=== PATIENT | male | born 1995 | race Caucasian/White ===

== ENCOUNTER 2024-02-28 03:55 | Emergency (ER) | payer SELFPAY ==
[~2024-02-28] VITALS: Ht 167.6 cm; Wt 90.0 kg
[2024-02-28 04:11] VITALS: O2SAT 97
[2024-02-28] MEDS: SODIUM CHLORIDE 0.9% 1,000 ML IV ONE (04:49)
[2024-02-28] MEDS: LORAZEPAM 2MG/ML INJ IV ONE (04:49)
[2024-02-28 05:36] LABS: CARBON DIOXIDE 24 mEq/L (21-32); CHLORIDE 106 mEq/L (98-107); POTASSIUM 3.3 mEq/L (3.5-5.1); SODIUM 138 mEq/L (136-145)
[2024-02-28 05:41] LABS: CREATININE 0.7 mg/dL (0.6-1.3)
[2024-02-28 05:42] LABS: GLUCOSE 100 mg/dL (70-105); UREA NITROGEN BLOOD 17 mg/dL (9-23)
[2024-02-28 05:45] LABS: BASOPHILS % 0.5 % (0.0-2.0); EOSINOPHILS % 1.6 % (0.0-5.0); HEMOGLOBIN. 13.5 g/dL (14.0-18.0); LYMPHOCYTES % 15.7 % (20.0-50.0); MEAN CORPUSCULAR HEMOGLOBIN 32.1 pg (28.0-32.0); MEAN CORPUSCULAR HGB CONC 34.5 g/dL (31.0-37.0); MEAN PLATELET VOLUME 8.7 fl (7.4-10.4); MONOCYTES % 10.1 % (2.0-8.0); NEUTROPHILS % 72.1 % (40.0-76.0); PLATELET 262 x1000/uL (130-400); RED BLOOD CELL COUNT 4.19 mill/uL (4.7-6.1); RED CELL DISTRIBUTION WIDTH 12.6 % (11.6-14.6); WHITE BLOOD COUNT 10.2 x1000/uL (4.5-11.0)
[2024-02-28 05:54] LABS: ETHANOL BLOOD < 10 mg/dL (<10)
[2024-02-28 06:16] LABS: ACETAMINOPHEN < 2 ug/mL (10-30)
[2024-02-28 08:24] VITALS: BP 114/74; PULSE 99; RESP 18; TEMP 37.00296; O2SAT 99
== END 2024-02-28 08:42 | disposition home or self-care (01) ==
LOC: ER 03:55
DX: F14.10 Cocaine abuse, uncomplicated (principal)
CPT/HCPCS: 80048; 80307; 80329; 80320; 85025; 36415; 93005; 96361; 96374; 99285; J2060; J7030; G0480